=== PATIENT | male | born 1990 | race Caucasian/White ===

== ENCOUNTER 2017-06-10 13:52 | Emergency (ER) | payer BC, OTHER ==
[2017-06-10 14:23] VITALS: BP 108/54; PULSE 53; TEMP 98.3; BMI 23.7
--- NOTE | 2017-06-10 14:23 | PDOC ---
Rapid Medical Evaluation Chief Complaint: Urinary Problem Time Seen by Provider: 06/10/17 14:20 Medical Evaluation: Allergies Allergy/AdvReac Type Severity Reaction Status Date / Time No Known Allergies Allergy Verified 06/10/17 14:18 06/10/17 14:21 The patient presents with a chief complaint of: Pain with urination for two days. Requesting STD testing I have performed a brief in-person evaluation of this patient; Pertinent physical exam findings: ambulatory, in no respiratory distress. VSS I have ordered the following: UA, UC, HIV, GC, Chlamydia, RPR, The patient will proceed to the ED for further evaluation.
[2017-06-10 15:27] LABS: URINE APPEARANCE CLEAR; URINE BILIRUBIN NEGATIVE (NEGATIVE); URINE BLOOD NEGATIVE (NEGATIVE); URINE COLOR LTYELLOW; URINE GLUCOSE (UA) NEGATIVE (NEGATIVE); URINE KETONE NEGATIVE (NEGATIVE); URINE LEUK ESTERASE NEGATIVE (NEGATIVE); URINE NITRITE NEGATIVE (NEGATIVE); URINE PROTEIN NEGATIVE (NEGATIVE); URINE UROBILINOGEN NEGATIVE mg/dL (0.2-1.0)
[2017-06-10] MEDS ORDERED: AZITHROMYCIN 1 GM PACKET PO ONE (15:59)
--- NOTE | 2017-06-10 15:59 | PDOC ---
History of Present Illness - General Chief Complaint: Urinary Problem Stated Complaint: LAB VARIANCE Time Seen by Provider: 06/10/17 14:20 History Source: Patient Exam Limitations: No Limitations - History of Present Illness Travel History: No Initial Comments: 06/10/17 15:52 27 yr male with c/o unprotected sexual intercourse the past month. Pt has 4 days burning sensationat tip of penis after he uriantes and right before the urine comes out. no abd pain no rectal pain. Past History - Past Medical History Allergies/Adverse Reactions: Allergies Allergy/AdvReac Type Severity Reaction Status Date / Time No Known Allergies Allergy Verified 06/10/17 14:18 Home Medications: Ambulatory Orders NK [No Known Home Medication] 06/10/17 COPD: No - Immunization History Immunization Up to Date: No - Suicide/Smoking/Psychosocial Hx Smoking Status: No Smoking History: Never smoked Have you smoked in the past 12 months: No Number of Cigarettes Smoked Daily: 0 Information on smoking cessation initiated: No Hx Alcohol Use: No Drug/Substance Use Hx: No Substance Use Type: Marijuana *Physical Exam - Vital Signs Last Vital Signs Temp Pulse Resp BP Pulse Ox 98.3 F 53 L 18 108/54 100 06/10/17 14:19 06/10/17 14:19 06/10/17 14:19 06/10/17 14:19 06/10/17 14:19 - Physical Exam General Appearance: Yes: Nourished, Appropriately Dressed HEENT: positive: EOMI, ILANA, Normal ENT Inspection, TMs Normal, Pharynx Normal Neck: positive: Supple Respiratory/Chest: positive: Lungs Clear, Normal Breath Sounds Cardiovascular: positive: Regular Rhythm, Regular Rate Male Genitalia: positive: normal genitalia. negative: discharge, testicular tenderness Lymphatic: negative: Adenopathy Musculoskeletal: positive: Normal Inspection Extremity: positive: Normal Capillary Refill, Normal Inspection, Normal Range of Motion Integumentary: positive: Normal Color, Dry, Warm Neurologic: positive: Fully Oriented, Alert, Normal Mood/Affect, Normal Response , Motor Strength 5/5 ED Treatment Course - ADDITIONAL ORDERS Additional order review: Laboratory Results 06/10/17 15:10 Urine Color Ltyellow Urine Appearance Clear Urine pH 6.0 Ur Specific [place] 1.025 Urine Protein Negative Urine Glucose (UA) Negative Urine Ketones Negative Urine Blood Negative Urine Nitrite Negative Urine Bilirubin Negative Urine Urobilinogen Negative Ur Leukocyte Esterase Negative Medical Decision Making - Medical Decision Making 06/10/17 15:53 cc: pinching, burning sensation with urination neg testicle pain neg scrotal swelling or pain no lesions will send cultures (sent from [facility]) will treat prophylacticaly *DC/Admit/Observation/Transfer Diagnosis at time of Disposition: Dysuria, History of unprotected sex - Discharge Dispostion Disposition: HOME Condition at time of disposition: Good - Referrals - Patient Instructions Additional Instructions: 06/10/17 1. As discussed, a screening test for the HIV virus was performed today. Your HIV test is Negative (normal). 2. As discussed, if you engaged in high risk-behavior in the three (3) months prior to this test, you could still potentially be at risk and you will need to be re-tested. 3. As discussed, avoid any high risk behavior (such as unprotected sex or needle-sharing) in the future to minimize the chances of alvarado HIV. always use condoms to prevent alvarado HIV, Hepatitis, and other STD infections follow with the urologist Dr. Mayes for any worsening symptoms drink at least 2 liters of water a day - Post Discharge Activity
[2017-06-10] MEDS ORDERED: AZITHROMYCIN 250 MG TABLET ONE (16:04)
== END 2017-06-10 16:35 | disposition home or self-care (01) ==
LOC: JERFT 13:52
DX: Z77.21 Contact with and (suspected) exposure to potentially hazardous body fluids (principal)
CPT/HCPCS: 36415; 81003; 86593; 87086; 87389; 87491; 87591; 99281-25

== ENCOUNTER 2018-02-08 15:33 | Emergency (ER) | payer BC, OTHER ==
--- NOTE | 2018-02-08 15:49 | PDOC ---
History of Present Illness - General Chief Complaint: Pain Stated Complaint: WEAKNESS/vomiting/diarrhea Time Seen by Provider: 02/08/18 15:41 - History of Present Illness Initial Comments: 27 year old male without a any previously medical history presenting with nausea vomiting x 1 day and extremity spasms/ anxiety for the past 30 minutes. Patient states that he was playing basketball yesterday for two hours (very athletic and this is normal for him) and then drank a few drinks of Henessy. He is not a frequent drinker but did not drink an extraordinary amount. He does admit that he felt dehydrated yesterday and drank less than usual amount of water. Yesterday evening after the [place] he started to vomit NBNB clear fluid and has had multiple episodes of vomiting today as well. On the way over to the ED he had bilateral hand spasms and severe anxiety from these spasms. Denies any recent fevers chills, chest pain, abdominal pain, headache, focal neuro deficit, or other concerning symptoms. He has never had these symptoms before. Again, he is not a frequent drinker or other illicit substance user with the exception of Marijuana which he smokes everyday. He denies having smoked yesterday. 02/08/18 17:28 Past History - Past Medical History Allergies/Adverse Reactions: Allergies Allergy/AdvReac Type Severity Reaction Status Date / Time No Known Allergies Allergy Verified 02/08/18 15:34 Home Medications: Ambulatory Orders NK [No Known Home Medication] 06/10/17 COPD: No - Immunization History Immunization Up to Date: No - Suicide/Smoking/Psychosocial Hx Smoking Status: No Smoking History: Never smoked Have you smoked in the past 12 months: No Number of Cigarettes Smoked Daily: 0 Hx Alcohol Use: No Drug/Substance Use Hx: No Substance Use Type: Marijuana Review of Systems - Review of Systems Constitutional: No: Chills, Diaphoresis, Fever, Loss of Appetite HEENTM: No: Blurred Vision, Tearing, Ocular Prothesis Respiratory: No: Cough, Shortness of Breath, SOB with Exertion, Productive cough Cardiac (ROS): No: Chest Pain, Edema, Irregular Heart Rate, Lightheadedness, Palpitations ABD/GI: Yes: Nausea, Vomiting. No: Diarrhea, Poor Appetite : No: Burning, Dysuria, Discharge, Frequency Musculoskeletal: Yes: Muscle Weakness. No: Back Pain, Joint Pain Integumentary: No: Bruising, Lesions, Lumps Neurological: Yes: Tingling. No: Headache, Numbness, Paresthesia Psychiatric: No: Anxiety, Depression Endocrine: No: Excessive Sweating, Flushing Hematologic/Lymphatic: No: Anemia, Blood Clots, Easy Bleeding *Physical Exam - Physical Exam General Appearance: Yes: Nourished, Appropriately Dressed, Apparent Distress, Moderate Distress HEENT: positive: EOMI, ILANA, Normal ENT Inspection, Normal Voice Neck: positive: Trachea midline, Normal Thyroid, Supple. negative: Tender, Rigid Respiratory/Chest: positive: Lungs Clear, Normal Breath Sounds, Respiratory Distress (mild respiratory distress but moving air well), Rapid RR. negative: Chest Tender Cardiovascular: positive: Regular Rhythm, Regular Rate Gastrointestinal/Abdominal: positive: Normal Bowel Sounds, Flat, Soft. negative : Tender Lymphatic: negative: Adenopathy, Tenderness Musculoskeletal: positive: Normal Inspection. negative: Decreased Range of Motion Extremity: positive: Normal Capillary Refill. 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 Likely related to dehydration and alcoholic gastritis when he worked out heavily and then drank a moderate amount of alcohol last night. On presentation to the ED he appeared anxious and had hand cramps. His hand cramps began to resolve immediately after 3 L NS. His Lactic Acid was elevated to 4 originally but was down to 1.1 by discharge. UA and UTox were negative for infection and positive for THC (he admitted to this in the HPI). Patient VSS and tolerated PO so will DC with hydration precautions and return instructions. 02/08/18 19:20 *DC/Admit/Observation/Transfer Diagnosis at time of Disposition: Dehydration after exertion, Muscle spasm - Discharge Dispostion Disposition: HOME Condition at time of disposition: Improved Decision to Admit order: No - Referrals Referrals: [facility] [Provider Group] - Patient Instructions Printed Discharge Instructions: DI for Dehydration -- Child Additional Instructions: Please stay hydrated when you are playing sports. Please establish primary care with your primary care physician or you can use our clinic on this form. Please return to the ED if you have new or worsening symptoms. - Post Discharge Activity
[2018-02-08] MEDS ORDERED: ONDANSETRON 4 MG/2 ML VIAL IVPUSH ONE (15:51)
[2018-02-08] MEDS ORDERED: FAMOTIDINE 20 MG/50 ML IVPB 20 MG/50 ML MG IVPB ONE ×2 (15:51→16:17)
[2018-02-08] MEDS ORDERED: SODIUM CHLORIDE 0.9% 1000 ML INFUS.BAG IV ONE ×2 (15:51)
[2018-02-08 16:02] VITALS: TEMP 98.8; BMI 22.5
[2018-02-08] MEDS ORDERED: ONDANSETRON 4 MG/2 ML VIAL ONE (16:16)
--- NOTE | 2018-02-08 16:23 | PDOC ---
Attending Attestation - HPI HPI: 02/08/18 16:27 The patient is a 27-year-old male with no significant past medical history presents to the emergency department initially for nausea and vomiting. The patient reports he was en route to the ED for nausea and vomiting evaluation, states he had numerous episodes of nonbilious-bloody emesis today. Enroute to the ED, the patients extremities began to contract. The patient is anxious and concerned about the new onset contraction. The patient recalls having 3 glasses of Irma with water yesterday, states usually hes able to drink more. Allergies: NKA Social history: (+) alcohol and marijuana use. No past or present use of tobacco reported. Surgical history: none reported PCP: Not on staff. - Physicial Exam PE: 02/08/18 16:27 GENERAL: patient is tearful, panicky and nauseated. Awake, alert, and fully oriented, in no acute distress HEAD: No signs of trauma EYES: PERRLA, EOMI, sclera anicteric, conjunctiva clear ENT: Auricles normal inspection, hearing grossly normal, nares patent, oropharynx clear without exudates. Moist mucosa NECK: Normal ROM, supple, no lymphadenopathy, JVD, or masses LUNGS: (+) Typenic. clear to auscultation bilaterally. No wheezes, and no crackles HEART: Regular rate and rhythm, normal S1 and S2, no murmurs, rubs or gallops ABDOMEN: Soft, nontender, normoactive bowel sounds. No guarding, no rebound. No masses EXTREMITIES: Normal range of motion, no edema. No clubbing or cyanosis. No cords, erythema, or tenderness NEUROLOGICAL: Sensation is intact, moving fingers and toes. Cranial nerves II through XII grossly intact. Normal speech. SKIN: Warm, Dry, normal turgor, no rashes or lesions noted. - Medical Decision Making 02/08/18 16:28 Documentation prepared by Nicole Bautista, acting as biomedical engineering director for Sylvia Knight DO. <Nicole Bautista - Last Filed: 02/08/18 16:26> - Resident Resident Name: Kameron Chavez - ED Attending Attestation I have performed the following: I have examined & evaluated the patient, The case was reviewed & discussed with the resident, I agree w/resident's findings & plan, Exceptions are as noted - Critical Care Time Total Critical Care Time: 35 Critical Care Statement: The care of this patient involved high complexity decision making to prevent further life threatening deterioration of the patient 's condition and/or to evaluate & treat vital organ system(s) failure or risk of failure. - Medical Decision Making 02/08/18 16:22 I, Dr. Sylvia Knight, DO, attest that this document has been prepared under my direction and personally reviewed by me in its entirety. I further attest, that it accurately reflects all work, treatment, procedures and medical decision -making performed by me. 02/08/18 16:39 a/p: 27yo male with n/v yesterday and today with muscle cramps and spasms -pt tearful and anxious/tachypnic -pt with contracted hands -suspect electolyte abnl -admits to etoh use yesterday -pt with difficulty speaking secondary to acute stress reaction and panic attack -will send labs, ekg, cxr, lactate, ua, uds, etoh level -will hydrate with NSS -will monitor and reassess 02/08/18 16:41 cxr clear 02/08/18 17:09 re-eval: all symptoms resolved pt speaking in full sentences, able to text and neuro intact feeling much better 02/08/18 18:47 pt feeling much better stable for d/c to home 02/08/18 18:50 will repeat lactate prior to d/c to home <Sylvia Knight - Last Filed: 02/08/18 18:50> Heart Score/ECG Review - ECG Intrepretation Comment:: 02/08/18 16:41 sinus at 68, nl axis, nl interval, no acute st/t wave findings <Sylvia Knight - Last Filed: 02/08/18 18:50>
[2018-02-08 16:35] LABS: VENOUS PH 7.55 (7.32-7.42); VENOUS PO2 44.2 mmHg (28-48)
[2018-02-08 16:38] LABS: BASO % 0.4 % (0-2.0); EOS % 0.1 % (0-4.5); HEMATOCRIT 45.6 % (35.4-49); HEMOGLOBIN 15.3 GM/dL (11.7-16.9); LYMPH % 12.9 % (8-40); MCH 30.1 pg (25.7-33.7); MCHC 33.6 g/dl (32.0-35.9); MEAN CELL VOLUME 89.6 fl (80-96); MEAN PLT VOLUME 10.2 fl (7.5-11.1); MONO % 4.6 % (3.8-10.2); PLATELET COUNT 245 K/MM3 (134-434); RDW 12.9 % (11.9-15.9); WHITE BLOOD COUNT 8.4 K/mm3 (4.0-10.0)
[2018-02-08 16:46] LABS: INR 1.01 (0.83-1.09); PROTHROMBIN TIME (PATIENT) 11.9 SEC (9.7-13.0)
[2018-02-08 16:49] LABS: ACTIVATED PTT 27.7 SECONDS (25.2-36.5)
[2018-02-08] MEDS ORDERED: SODIUM CHLORIDE 0.9% 500 ML INFUS.BAG IV ONE (17:27)
[2018-02-08 17:38] LABS: ALBUMIN 3.8 g/dl (3.4-5.0); ALK PHOS 61 U/L (45-117); ANION GAP 7 MMOL/L (8-16); BILIRUBIN,TOTAL 0.4 mg/dL (0.2-1); BLOOD UREA NITROGEN 23 mg/dL (7-18); CALCIUM 8.2 mg/dL (8.5-10.1); CHLORIDE 108 mmol/L (98-107); CO2 26 mmol/L (21-32); CREATININE 0.7 mg/dL (0.55-1.3); GLUCOSE,RANDOM 80 mg/dL (74-106); POTASSIUM 3.8 mmol/L (3.5-5.1); SGOT/AST 30 U/L (15-37); SGPT/ALT 24 U/L (13-61); SODIUM 140 mmol/L (136-145); TOT PROT 7.3 g/dl (6.4-8.2)
[2018-02-08 19:27] LABS: COCAINE, UR NEGATIVE ng/ml (CUTOFF=300); METHADONE, UR NEGATIVE ng/ml (CUTOFF=300); OPIATES, URI NEGATIVE ng/ml (CUTOFF=300); PHENCYCLIDINE,URINE NEGATIVE ng/ml (CUTOFF=25); URINE AMPHETAMINES NEGATIVE ng/ml (CUTOFF=500); URINE BARBITURATES NEGATIVE ng/ml (CUTOFF=200); URINE BENZODIAZEPINES NEGATIVE ng/ml (CUTOFF=200)
[2018-02-08 19:34] LABS: URINE APPEARANCE CLEAR; URINE BILIRUBIN NEGATIVE (<2.0 mg/dL); URINE COLOR YELLOW; URINE GLUCOSE (UA) NEGATIVE (NEGATIVE); URINE KETONE 2+ (NEGATIVE); URINE LEUK ESTERASE NEGATIVE (NEGATIVE); URINE NITRITE NEGATIVE (NEGATIVE); URINE PROTEIN 1+ (NEGATIVE); URINE UROBILINOGEN NEGATIVE mg/dL (0.2-1.0)
[2018-02-08 19:47] LABS: EPI CELLS RARE /HPF (FEW); URINE MUCUS RARE
[2018-02-08 20:17] VITALS: BP 133/80; PULSE 55
--- NOTE | 2018-02-10 11:09 | EKG ---
Test Reason : Blood Pressure : / mmHG Vent. Rate : 068 BPM Atrial Rate : 068 BPM P-R Int : 166 ms QRS Dur : 106 ms QT Int : 404 ms P-R-T Axes : 068 065 046 degrees QTc Int : 429 ms NORMAL SINUS RHYTHM RSR' OR QR PATTERN IN V1 SUGGESTS RIGHT VENTRICULAR CONDUCTION DELAY POSSIBLE LATERAL INFARCT , AGE UNDETERMINED ABNORMAL ECG NO PREVIOUS ECGS AVAILABLE Confirmed by JUDAH GRAVES MD ([id number]) on 02/10/2018 11:09:10 AM Referred By: Confirmed By:JUDAH GRAVES MD
== END 2018-02-08 20:19 | disposition home or self-care (01) ==
LOC: JER 15:33
PROC: 3E033GC Introduction of Other Therapeutic Substance into Peripheral Vein, Percutaneous Approach (ICD-10-PCS; principal; 2018-02-08)
PROC: 3E033GC Introduction of Other Therapeutic Substance into Peripheral Vein, Percutaneous Approach (ICD-10-PCS; 2018-02-08)
DX: E86.0 Dehydration (principal); M62.838 Other muscle spasm; F41.0 Panic disorder [episodic paroxysmal anxiety]; F43.8 Other reactions to severe stress
CPT/HCPCS: 36415; 71045-TC-FY; 80053; 80307; 81003; 81015; 82550; 82553; 82803; 83605; 84484; 85025; 85610; 85730; 86850; 86900; 86901; 93005; 93010; 99284-25; J7030

== ENCOUNTER 2018-05-19 11:54 | Emergency (ER) | payer SELFPAY ==
[2018-05-19 12:04] VITALS: BP 109/59; PULSE 68; TEMP 97; BMI 24.4
--- NOTE | 2018-05-19 13:30 | PDOC ---
History of Present Illness - General Chief Complaint: Revisit, Lab Variance Stated Complaint: PROBLEM URINATING Time Seen by Provider: 05/19/18 12:36 History Source: Patient Exam Limitations: No Limitations - History of Present Illness Initial Comments: 05/19/18 13:27 28 year old male with no significant medical or surgical history presents with reports of dysuria and penile discharge. Patient reports unprotected intercourse 2 weeks ago and since then with penile discomfort and dysuria. Timing/Duration: reports: constant Quality: reports: burning Abdominal Pain Onset Location: reports: other (penis]) Pain Radiation: reports: no radiation Activities at Onset: reports: none Past History - Past Medical History Allergies/Adverse Reactions: Allergies Allergy/AdvReac Type Severity Reaction Status Date / Time No Known Allergies Allergy Verified 05/19/18 12:04 Home Medications: Ambulatory Orders NK [No Known Home Medication] 06/10/17 COPD: No CHF: No - Immunization History Immunization Up to Date: No - Suicide/Smoking/Psychosocial Hx Smoking Status: No Smoking History: Never smoked Have you smoked in the past 12 months: No Number of Cigarettes Smoked Daily: 0 Information on smoking cessation initiated: No Hx Alcohol Use: No Drug/Substance Use Hx: No Substance Use Type: Marijuana Review of Systems - Review of Systems Constitutional: No: Chills, Fever HEENTM: No: Ear Pain, Nose Pain, Nose Congestion, Hearing Loss Respiratory: No: Cough Cardiac (ROS): No: Chest Pain, Palpitations : Yes: Burning, Discharge, Pain Musculoskeletal: No: Back Pain *Physical Exam - Vital Signs Last Vital Signs Temp Pulse Resp BP Pulse Ox 97.0 F L 68 16 109/59 L 100 05/19/18 11:58 05/19/18 11:58 05/19/18 11:58 05/19/18 11:58 05/19/18 11:58 - Physical Exam General Appearance: Yes: Nourished, Appropriately Dressed HEENT: positive: TMs Normal, Pharynx Normal Neck: positive: Supple. negative: Lymphadenopathy (R) Cardiovascular: positive: Regular Rate, S1, S2 Male Genitalia: positive: normal genitalia, discharge (clear to whitish discharge from penis). negative: testicular tenderness Extremity: positive: Normal Capillary Refill Moderate Sedation - Procedure Monitoring Vital Signs: Procedure Monitoring Vital Signs Temperature 97.0 F L 05/19/18 11:58 Pulse Rate 68 05/19/18 11:58 Respiratory Rate 16 05/19/18 11:58 Blood Pressure 109/59 L 05/19/18 11:58 O2 Sat by Pulse Oximetry (%) 100 05/19/18 11:58 Medical Decision Making - Medical Decision Making 05/19/18 14:36 28 year old male with no significant medical or surgical history presents with reports of dysuria and penile discharge Plan urinalysis gc/chlamydia empiral treatment *DC/Admit/Observation/Transfer Diagnosis at time of Disposition: Dysuria, History of unprotected sex - Discharge Dispostion Disposition: HOME Condition at time of disposition: Good Decision to Admit order: No - Referrals Schedule a call back: gc/chlamydia - Patient Instructions Printed Discharge Instructions: DI for Dysuria -- Adult Additional Instructions: Please refrain from sexual intercourse x 7 days Use condoms to prevent future infections Return to ed for worsening symptoms including blood from penis - Post Discharge Activity Forms/Work/School Notes: Back to Work
[2018-05-19] MEDS ORDERED: AZITHROMYCIN 500 MG TABLET PO ONE (14:18)
[2018-05-19 14:20] LABS: URINE APPEARANCE CLEAR; URINE BILIRUBIN NEGATIVE (<2.0 mg/dL); URINE COLOR YELLOW; URINE GLUCOSE (UA) NEGATIVE (NEGATIVE); URINE KETONE NEGATIVE (NEGATIVE); URINE LEUK ESTERASE NEGATIVE (NEGATIVE); URINE NITRITE NEGATIVE (NEGATIVE); URINE PROTEIN NEGATIVE (NEGATIVE); URINE UROBILINOGEN NEGATIVE mg/dL (0.2-1.0)
[2018-05-19] MEDS ORDERED: AZITHROMYCIN 250 MG TABLET ONE (14:25)
== END 2018-05-19 14:53 | disposition home or self-care (01) ==
LOC: JERFT 11:54
DX: R36.9 Urethral discharge, unspecified (principal); R30.0 Dysuria; Z77.21 Contact with and (suspected) exposure to potentially hazardous body fluids
CPT/HCPCS: 36415; 81003; 87491; 87591; 99281-25